=== PATIENT | male | born 1955 | race American Indian/Alaskan Native ===

== ENCOUNTER 2018-07-10 14:35 | Inpatient (IN) | payer OTHER ==
--- NOTE | 2018-07-10 15:44 | C.PDOC ---
History Of Present Illness 63 y/o male with PMHx of HTN presents to the ED complaining of a 1-2 week history of feeling the blood mariano to his head upon standing up. Associated with complaints of polydipsia and polyuria. Patient came in today because he also developed bilateral blurry vision. Otherwise he denies any chest pain, sob , fever, abdominal pain, vomiting, diarrhea, incontinence, or other complaints. Time Seen by Provider: 07/10/18 15:35 Chief Complaint (Nursing): Dizziness/Lightheaded History Per: Patient History/Exam Limitations: no limitations Onset/Duration Of Symptoms: Days Current Symptoms Are (Timing): Still Present Activity At Onset Of Symptoms: Had Just Stood up Fall Associated With With Symptoms: No Past Medical History Reviewed: Historical Data, Nursing Documentation, Vital Signs Vital Signs: Last Vital Signs Temp 98.4 F 07/10/18 15:08 Pulse 80 07/10/18 17:39 Resp 16 07/10/18 17:39 BP 152/87 H 07/10/18 17:39 Pulse Ox 98 07/10/18 18:18 - Medical History PMH: HTN Family History: States: No Known Family Hx - Social History Hx Tobacco Use: Yes Hx Alcohol Use: No Hx Substance Use: No - Immunization History Hx Tetanus Toxoid Vaccination: No Hx Influenza Vaccination: No Hx Pneumococcal Vaccination: No Review Of Systems Constitutional: Positive for: Other (Polydipsia). Negative for: Fever, Chills Eyes: Positive for: Vision Change (blurred vision) Cardiovascular: Negative for: Chest Pain Respiratory: Negative for: Shortness of Breath Gastrointestinal: Negative for: Vomiting, Abdominal Pain, Diarrhea Genitourinary: Positive for: Other (Polyuria). Negative for: Dysuria, Incontinence Neurological: Positive for: Other (Feels the "blood mariano to his head"). Negative for: Headache, Dizziness Physical Exam - Physical Exam Appears: Non-toxic, No Acute Distress Skin: Warm, No Rash Head: Atraumatic, Normacephalic Eye(s): bilateral: PERRL, EOMI Oral Mucosa: Moist Neck: Normal ROM, Supple Chest: Symmetrical, No Tenderness Cardiovascular: Rhythm Regular, No Murmur Respiratory: Normal Breath Sounds, No Rales, No Rhonchi, No Wheezing Gastrointestinal/Abdominal: Bowel Sounds (normoactive), Soft, No Tenderness, No Distention Back: No CVA Tenderness Extremity: Bilateral: Atraumatic, Normal Color And Temperature Neurological/Psych: Oriented x3, Other (No gross deficit) ED Course And Treatment - Laboratory Results Result Diagrams: 07/10/18 15:58 07/10/18 15:58 O2 Sat by Pulse Oximetry: 98 (RA) Pulse Ox Interpretation: Normal Medical Decision Making Medical Decision Making: Initial Impression: 63 y/o M with c/o blurred vision, polydipsia, polyuria Accucheck in triage > 500. Plan: Blood work UA blood cultures VBG Accucheck Progress/Updates: Labs reviewed, glucose 673 mg/dl. Case discussed w/ hospitalist on-call, Dr. Trejo, who accepts patient for admission for new-onset diabetes. request dose if iv insulin in ed, ordered by me. Disposition Discussed With : Christian Trejo Doctor Will See Patient In The: Hospital - Disposition Disposition: HOSPITALIZED Disposition Time: 17:06 Condition: SERIOUS - Clinical Impression Clinical Impression: Diabetes mellitus, new onset - PA / [employer] / Resident Statement MD/DO has reviewed & agrees with the documentation as recorded. - Scribe Statement The provider has reviewed the documentation as recorded by the Scribe (Jayla Murray) All medical record entries made by the Scribe were at my direction and personally dictated by me. I have reviewed the chart and agree that the record accurately reflects my personal performance of the history, physical exam, medical decision making, and the department course for this patient. I have also personally directed, reviewed, and agree with the discharge instructions and disposition.
[2018-07-10] MEDS ORDERED: Sodium Chloride 0.9% 1,000 ML IV ONE (15:46)
[2018-07-10 16:09] LABS: VENOUS BLOOD GAS BASE EXCESS -5.4 mmol/L (0.0-2.0); VENOUS BLOOD GAS PCO2 34 mmHg (40-60); VENOUS BLOOD GAS PO2 54 mm/Hg (30-55); VENOUS BLOOD PH 7.36 (7.32-7.43)
[2018-07-10 16:10] LABS: URINE BILIRUBIN NEGATIVE (NEGATIVE); URINE BLOOD NEGATIVE (NEGATIVE); URINE CLARITY Clear (Clear); URINE COLOR Colorless (YELLOW); URINE GLUCOSE (UA) 3+ mg/dL (Normal); URINE LEUKOCYTE ESTERASE NEG Leu/uL (Negative); URINE PROTEIN NEGATIVE (NEGATIVE); URINE UROBILINOGEN NORMAL mg/dL (0.2-1.0)
[2018-07-10 16:28] LABS: BASO % 0.4 % (0.0-2.0); EOS % 0.7 % (0.0-4.0); HEMOGLOBIN 14.7 g/dL (12.0-18.0); LYMPH # 1.4 K/uL (1.0-4.3); LYMPH % 28.3 % (20.0-40.0); MEAN CELL VOLUME 90.6 fL (80.0-94.0); MEAN CORPUSCULAR HEMOGLOBIN 30.3 pg (27.0-31.0); MEAN CORPUSCULAR HGB CONC 33.5 g/dL (33.0-37.0); MEAN PLATELET VOLUME 11.7 fL (7.2-11.7); MONO # 0.3 K/uL (0.0-0.8); MONO % 5.7 % (0.0-10.0); NEUT # 3.2 K/uL (1.8-7.0); NEUT % 64.9 % (50.0-75.0); NRBC % 0.1 % (0.0-2.0); RBC 4.86 Mil/uL (4.40-5.90)
[2018-07-10 16:30] LABS: ALB/GLOB RATIO 1.3 (1.0-2.1); ALBUMIN 4.4 g/dL (3.5-5.0); ALT/SGPT 33 U/L (21-72); AST/SGOT 22 U/L (17-59); BLOOD UREA NITROGEN 9 mg/dL (9-20); CALCIUM 9.6 mg/dl (8.6-10.4); GFR NON-AFRICAN AMERICAN > 60
[2018-07-10] MEDS ORDERED: Sodium Chloride 0.9% 1,000 ML ONE (16:57)
[2018-07-10] MEDS ORDERED: (Novolin R) Insulin Human Regular 100 units/ml vial IV STA (17:02)
[2018-07-10] MEDS ORDERED: (Novolin R) Insulin Human Regular 100 units/ml vial ONE (17:11)
[2018-07-10] MEDS ORDERED: Dextrose 50% SYRINGE Inj (50 ml) IV PRN (18:34)
[2018-07-10] MEDS ORDERED: Glucagon Recombinant 1 mg Inj IM PRN (18:34)
--- NOTE | 2018-07-10 18:35 | RAD ---
Date of service: 07/10/2018 HISTORY: admit COMPARISON: No prior. TECHNIQUE: Chest PA and lateral FINDINGS: LUNGS: No active pulmonary disease. PLEURA: No significant pleural effusion identified. No pneumothorax apparent. CARDIOVASCULAR: Normal. OSSEOUS STRUCTURES: No significant abnormalities. VISUALIZED UPPER ABDOMEN: Normal. OTHER FINDINGS: None. IMPRESSION: No active disease.
--- NOTE | 2018-07-10 18:48 | CP.PCM.HP ---
<Melanie Vogel - Last Filed: 07/10/18 20:05> History of Present Illness - History of Present Illness History of Present Illness: Christine Ruffin is a 63 yo male with a history of HTN who presents to the ED with blurry vision, polydipsia, polyuria, and weakness x2 weeks. The patient states this has happened to him in the past but never to this extent. The patient also reports a recent unintentional 15 lb weight loss. He stateshe drinks well over a gallon of water each day. Patient denies chest pain and SOB. He denies LEA. He denies loss of sensation, numbness, and tingling. He denies any lesions. He denies fevers and chills. PMH: HTN PSH: none Meds: lisinopril (unknown dose), MV All: NKA FH: mother and father sister ()- DM adult children- healthy SH: Lives in with Works in maintenance Tobacco- 1 ppd x 40 yrs Alcohol- rare Denies illicit drugs, including IVDA PMD: [facility] clinic Code status: full code Medical proxy: Laina [phone] Present on Admission - Present on Admission Any Indicators Present on Admission: No History of DVT/PE: No History of Uncontrolled Diabetes: No Urinary Catheter: No Decubitus Ulcer Present: No History Surgical Site Infection Following: None Review of Systems - Constitutional Constitutional: Weight Loss (15 lb), Weakness. absent: Chills, Fever, Headache , Increased Appetite - EENT Eyes: Blurred Vision. absent: Loss of Peripheral Vision, Pain, Loss of Vision Nose/Mouth/Throat: Dry Mouth. absent: Nasal Congestion, Sore Throat - Cardiovascular Cardiovascular: absent: Chest Pain, Dyspnea, Edema, Leg Edema, Lightheadedness, Palpitations - Respiratory Respiratory: absent: Cough, Dyspnea - Gastrointestinal Gastrointestinal: absent: Abdominal Pain, Constipation, Diarrhea, Nausea, Vomiting - Genitourinary Genitourinary: Urinary Frequency. absent: Dysuria, Hematuria, Urinary Hesitance - Musculoskeletal Musculoskeletal: absent: Muscle Weakness, Numbness, Tingling - Integumentary Integumentary: absent: Lesions, Non-Healing Lesions, Rash - Neurological Neurological: Weakness (generalized), Other Visual Disturbances (blurry). absent: Dizziness, Numbness, Paresthesias, Sensory Deficit, Tingling - Psychiatric Psychiatric: absent: Anxiety, Depression - Endocrine Endocrine: Polydipsia, Polyuria - Hematologic/Lymphatic Hematologic: absent: Easy Bleeding, Easy Bruising, Lymphadenopathy Past Patient History - Infectious Disease Hx of Infectious Diseases: None - Tetanus Immunizations Tetanus Immunization: Unknown - Past Medical History & Family History Pertinent Family History: sister- DM - Past Social History Smoking Status: Heavy Smoker > 10 Cigarettes Daily (1 ppd x40 yrs) Chewing Tobacco Use: No Cigar Use: No Alcohol: Occasional Drugs: Denies Home Situation {Lives}: With Family () Domestic Violence: Negative - CARDIAC Hx Hypertension: Yes - PSYCHIATRIC Hx Substance Use: No Meds Allergies/Adverse Reactions: Allergies Allergy/AdvReac Type Severity Reaction Status Date / Time No Known Allergies Allergy Verified 07/10/18 15:10 Physical Exam - Head Exam Head Exam: ATRAUMATIC, NORMAL INSPECTION, NORMOCEPHALIC - Eye Exam Eye Exam: EOMI, Normal appearance, PERRL - ENT Exam ENT Exam: Mucous Membranes Moist, Normal Exam - Neck Exam Neck exam: Positive for: Normal Inspection - Respiratory Exam Respiratory Exam: Clear to Auscultation Bilateral, NORMAL BREATHING PATTERN - Cardiovascular Exam Cardiovascular Exam: REGULAR RHYTHM, +S1, +S2 - GI/Abdominal Exam GI & Abdominal Exam: Normal Bowel Sounds, Soft. absent: Tenderness Additional comments: obese - Rectal Exam Rectal Exam: Deferred - Extremities Exam Extremities exam: Positive for: normal capillary refill, normal inspection, pedal pulses present. Negative for: pedal edema - Back Exam Back exam: NORMAL INSPECTION. absent: tenderness - Neurological Exam Neurological exam: Alert, CN II-XII Intact, Normal Gait, Oriented x3 - Psychiatric Exam Psychiatric exam: Normal Affect, Normal Mood - Skin Skin Exam: Dry, Intact, Normal Color, Warm Results - Vital Signs Recent Vital Signs: Last Vital Signs Temp 98.4 F 07/10/18 15:08 Pulse 80 07/10/18 17:39 Resp 16 07/10/18 17:39 BP 152/87 H 07/10/18 17:39 Pulse Ox 98 07/10/18 18:35 - Labs Result Diagrams: 07/10/18 15:58 07/10/18 15:58 Labs: Laboratory Results - last 24 hr 07/10/18 07/10/18 07/10/18 15:07 15:58 15:58 WBC 5.0 RBC 4.86 Hgb 14.7 Hct 44.0 MCV 90.6 MCH 30.3 MCHC 33.5 RDW 14.0 Plt Count 143 MPV 11.7 Neut % (Auto) 64.9 Lymph % (Auto) 28.3 Swain % (Auto) 5.7 Eos % (Auto) 0.7 Baso % (Auto) 0.4 Neut # (Auto) 3.2 Lymph # (Auto) 1.4 Swain # (Auto) 0.3 Eos # (Auto) 0.0 Baso # (Auto) 0.0 Differential Comment pO2 VBG pH VBG pCO2 VBG HCO3 VBG Total CO2 VBG O2 Sat (Calc) VBG Base Excess VBG Potassium Glucose Lactate Crit Value Called To Crit Value Called By Crit Value Read Back Blood Gas Notified Time Sodium Potassium Chloride Carbon Dioxide Anion Gap BUN Creatinine Est GFR ( Amer) Est GFR (Non-Af Amer) POC Glucose (mg/dL) > 500 H* Random Glucose Calcium Total Bilirubin AST ALT Alkaline Phosphatase Total Protein Albumin Globulin Albumin/Globulin Ratio Venous Blood Potassium Urine Color Colorless Urine Clarity Clear Urine pH 5.0 Ur Specific [place] 1.022 Urine Protein Negative Urine Glucose (UA) 3+ H Urine Ketones 1+ H Urine Blood Negative Urine Nitrate Negative Urine Bilirubin Negative Urine Urobilinogen Normal Ur Leukocyte Esterase Neg Urine WBC (Auto) 1 07/10/18 07/10/18 07/10/18 15:58 16:03 16:52 WBC RBC Hgb Hct MCV MCH MCHC RDW Plt Count MPV Neut % (Auto) Lymph % (Auto) Swain % (Auto) Eos % (Auto) Baso % (Auto) Neut # (Auto) Lymph # (Auto) Swain # (Auto) Eos # (Auto) Baso # (Auto) Differential Comment pO2 54 VBG pH 7.36 VBG pCO2 34 L VBG HCO3 20.4 VBG Total CO2 20.2 L VBG O2 Sat (Calc) 93.1 H VBG Base Excess -5.4 L VBG Potassium 3.1 L Glucose 673 H* Lactate 1.1 Crit Value Called To stefania Hartmann rn Crit Value Called By Sam Crit Value Read Back Y Blood Gas Notified Time 1608 Sodium 132 135.0 Potassium 4.3 Chloride 93 L 101.0 Carbon Dioxide 23 Anion Gap 20 BUN 9 Creatinine 1.0 Est GFR ( Amer) > 60 Est GFR (Non-Af Amer) > 60 POC Glucose (mg/dL) > 500 H* Random Glucose 778 H* Calcium 9.6 Total Bilirubin 1.1 AST 22 ALT 33 Alkaline Phosphatase 104 Total Protein 7.7 Albumin 4.4 Globulin 3.3 Albumin/Globulin Ratio 1.3 Venous Blood Potassium 3.1 L Urine Color Urine Clarity Urine pH Ur Specific [place] Urine Protein Urine Glucose (UA) Urine Ketones Urine Blood Urine Nitrate Urine Bilirubin Urine Urobilinogen Ur Leukocyte Esterase Urine WBC (Auto) 07/10/18 07/10/18 16:54 18:15 WBC RBC Hgb Hct MCV MCH MCHC RDW Plt Count MPV Neut % (Auto) Lymph % (Auto) Swain % (Auto) Eos % (Auto) Baso % (Auto) Neut # (Auto) Lymph # (Auto) Swain # (Auto) Eos # (Auto) Baso # (Auto) Differential Comment pO2 VBG pH VBG pCO2 VBG HCO3 VBG Total CO2 VBG O2 Sat (Calc) VBG Base Excess VBG Potassium Glucose Lactate Crit Value Called To Crit Value Called By Crit Value Read Back Blood Gas Notified Time Sodium Potassium Chloride Carbon Dioxide Anion Gap BUN Creatinine Est GFR ( Amer) Est GFR (Non-Af Amer) POC Glucose (mg/dL) > 500 H* 392 H Random Glucose Calcium Total Bilirubin AST ALT Alkaline Phosphatase Total Protein Albumin Globulin Albumin/Globulin Ratio Venous Blood Potassium Urine Color Urine Clarity Urine pH Ur Specific [place] Urine Protein Urine Glucose (UA) Urine Ketones Urine Blood Urine Nitrate Urine Bilirubin Urine Urobilinogen Ur Leukocyte Esterase Urine WBC (Auto) - EKG Data EKG Interpreted by: ER Physician EKG shows normal: Sinus rhythm Rate: Normal Assessment & Plan - Assessment and Plan (Free Text) Assessment: Patient is a 63 yo AA male with a h/o HTN who presented with blurry vision, weakness, polydipsia, and polyuria x2 weeks. In the ED, his blood glucose was 778. he also had 1+ ketones in his urine. This appears to be a new diagnosis of T2DM. Plan: T2DM, newly diagnosed - On admission: BG 778; 1 hour after regular insulin 10 units and 2 L NS: BG 392 - F/u BMP - VBG: glucose 673, pH 7.36, pO2 54, pCO2 34 - UA: ketones +1, glucose +3 - Anion gap: 16 - Accuchecks q3hrs over night then ACHS tomorrow - ISS- high dose - Hypoglycemia protocol - Lantus 10 units QHS - Crestor 5 mg PO QHS - F/u lipid panel - F/u TSH - F/u A1c - F/u microalbumin HTN- 180/70 on admission - Lisinopril 10 mg PO daily - Vitals q4hrs Tobacco use disorder - Smoking cessation counseling IVF: NS @ 150 GI ppx: not indicated VTE ppx: Lovenox 40 SC, SCDs Diet: heart healthy, low carb Code status: full code <Christian Trejo H - Last Filed: 07/11/18 07:31> Results - Vital Signs Recent Vital Signs: Last Vital Signs Temp 98.3 F 07/11/18 00:00 Pulse 72 07/11/18 00:00 Resp 20 07/11/18 00:00 BP 135/80 07/11/18 00:00 Pulse Ox 99 07/11/18 00:00 - Labs Result Diagrams: 07/11/18 06:55 07/10/18 20:58 Labs: Laboratory Results - last 24 hr 07/10/18 07/10/18 07/10/18 15:07 15:58 15:58 WBC 5.0 RBC 4.86 Hgb 14.7 Hct 44.0 MCV 90.6 MCH 30.3 MCHC 33.5 RDW 14.0 Plt Count 143 MPV 11.7 Neut % (Auto) 64.9 Lymph % (Auto) 28.3 Swain % (Auto) 5.7 Eos % (Auto) 0.7 Baso % (Auto) 0.4 Neut # (Auto) 3.2 Lymph # (Auto) 1.4 Swain # (Auto) 0.3 Eos # (Auto) 0.0 Baso # (Auto) 0.0 Differential Comment pO2 VBG pH VBG pCO2 VBG HCO3 VBG Total CO2 VBG O2 Sat (Calc) VBG Base Excess VBG Potassium Glucose Lactate Crit Value Called To Crit Value Called By Crit Value Read Back Blood Gas Notified Time Sodium Potassium Chloride Carbon Dioxide Anion Gap BUN Creatinine Est GFR ( Amer) Est GFR (Non-Af Amer) POC Glucose (mg/dL) > 500 H* Random Glucose Calcium Total Bilirubin AST ALT Alkaline Phosphatase Total Protein Albumin Globulin Albumin/Globulin Ratio Venous Blood Potassium Urine Color Colorless Urine Clarity Clear Urine pH 5.0 Ur Specific [place] 1.022 Urine Protein Negative Urine Glucose (UA) 3+ H Urine Ketones 1+ H Urine Blood Negative Urine Nitrate Negative Urine Bilirubin Negative Urine Urobilinogen Normal Ur Leukocyte Esterase Neg Urine WBC (Auto) 1 07/10/18 07/10/18 07/10/18 15:58 16:03 16:52 WBC RBC Hgb Hct MCV MCH MCHC RDW Plt Count MPV Neut % (Auto) Lymph % (Auto) Swain % (Auto) Eos % (Auto) Baso % (Auto) Neut # (Auto) Lymph # (Auto) Swain # (Auto) Eos # (Auto) Baso # (Auto) Differential Comment pO2 54 VBG pH 7.36 VBG pCO2 34 L VBG HCO3 20.4 VBG Total CO2 20.2 L VBG O2 Sat (Calc) 93.1 H VBG Base Excess -5.4 L VBG Potassium 3.1 L Glucose 673 H* Lactate 1.1 Crit Value Called To stefania Hartmann rn Crit Value Called By Sam Crit Value Read Back Y Blood Gas Notified Time 1608 Sodium 132 135.0 Potassium 4.3 Chloride 93 L 101.0 Carbon Dioxide 23 Anion Gap 20 BUN 9 Creatinine 1.0 Est GFR ( Amer) > 60 Est GFR (Non-Af Amer) > 60 POC Glucose (mg/dL) > 500 H* Random Glucose 778 H* Calcium 9.6 Total Bilirubin 1.1 AST 22 ALT 33 Alkaline Phosphatase 104 Total Protein 7.7 Albumin 4.4 Globulin 3.3 Albumin/Globulin Ratio 1.3 Venous Blood Potassium 3.1 L Urine Color Urine Clarity Urine pH Ur Specific [place] Urine Protein Urine Glucose (UA) Urine Ketones Urine Blood Urine Nitrate Urine Bilirubin Urine Urobilinogen Ur Leukocyte Esterase Urine WBC (Auto) 07/10/18 07/10/18 07/10/18 16:54 18:15 20:36 WBC RBC Hgb Hct MCV MCH MCHC RDW Plt Count MPV Neut % (Auto) Lymph % (Auto) Swain % (Auto) Eos % (Auto) Baso % (Auto) Neut # (Auto) Lymph # (Auto) Swain # (Auto) Eos # (Auto) Baso # (Auto) Differential Comment pO2 VBG pH VBG pCO2 VBG HCO3 VBG Total CO2 VBG O2 Sat (Calc) VBG Base Excess VBG Potassium Glucose Lactate Crit Value Called To Crit Value Called By Crit Value Read Back Blood Gas Notified Time Sodium Potassium Chloride Carbon Dioxide Anion Gap BUN Creatinine Est GFR ( Amer) Est GFR (Non-Af Amer) POC Glucose (mg/dL) > 500 H* 392 H 368 H Random Glucose Calcium Total Bilirubin AST ALT Alkaline Phosphatase Total Protein Albumin Globulin Albumin/Globulin Ratio Venous Blood Potassium Urine Color Urine Clarity Urine pH Ur Specific [place] Urine Protein Urine Glucose (UA) Urine Ketones Urine Blood Urine Nitrate Urine Bilirubin Urine Urobilinogen Ur Leukocyte Esterase Urine WBC (Auto) 07/10/18 07/10/18 07/11/18 20:58 21:34 01:02 WBC RBC Hgb Hct MCV MCH MCHC RDW Plt Count MPV Neut % (Auto) Lymph % (Auto) Swain % (Auto) Eos % (Auto) Baso % (Auto) Neut # (Auto) Lymph # (Auto) Swain # (Auto) Eos # (Auto) Baso # (Auto) Differential Comment pO2 VBG pH VBG pCO2 VBG HCO3 VBG Total CO2 VBG O2 Sat (Calc) VBG Base Excess VBG Potassium Glucose Lactate Crit Value Called To Crit Value Called By Crit Value Read Back Blood Gas Notified Time Sodium 140 Potassium 3.8 Chloride 109 H Carbon Dioxide 21 L Anion Gap 14 BUN 8 L Creatinine 1.0 Est GFR ( Amer) > 60 Est GFR (Non-Af Amer) > 60 POC Glucose (mg/dL) 340 H 275 H Random Glucose 318 H Calcium 7.8 L Total Bilirubin AST ALT Alkaline Phosphatase Total Protein Albumin Globulin Albumin/Globulin Ratio Venous Blood Potassium Urine Color Urine Clarity Urine pH Ur Specific [place] Urine Protein Urine Glucose (UA) Urine Ketones Urine Blood Urine Nitrate Urine Bilirubin Urine Urobilinogen Ur Leukocyte Esterase Urine WBC (Auto) 07/11/18 06:55 WBC 4.8 RBC 4.17 L Hgb 12.9 Hct 37.1 MCV 89.0 MCH 30.8 MCHC 34.6 RDW 14.2 Plt Count 115 L D MPV 12.0 H Neut % (Auto) 56.4 Lymph % (Auto) 35.8 Swain % (Auto) 5.6 Eos % (Auto) 1.8 Baso % (Auto) 0.4 Neut # (Auto) 2.7 Lymph # (Auto) 1.7 Swain # (Auto) 0.3 Eos # (Auto) 0.1 Baso # (Auto) 0.0 Differential Comment pO2 VBG pH VBG pCO2 VBG HCO3 VBG Total CO2 VBG O2 Sat (Calc) VBG Base Excess VBG Potassium Glucose Lactate Crit Value Called To Crit Value Called By Crit Value Read Back Blood Gas Notified Time Sodium Potassium Chloride Carbon Dioxide Anion Gap BUN Creatinine Est GFR ( Amer) Est GFR (Non-Af Amer) POC Glucose (mg/dL) Random Glucose Calcium Total Bilirubin AST ALT Alkaline Phosphatase Total Protein Albumin Globulin Albumin/Globulin Ratio Venous Blood Potassium Urine Color Urine Clarity Urine pH Ur Specific [place] Urine Protein Urine Glucose (UA) Urine Ketones Urine Blood Urine Nitrate Urine Bilirubin Urine Urobilinogen Ur Leukocyte Esterase Urine WBC (Auto) Attending/Attestation - Attestation I have personally seen and examined this patient.: Yes I have fully participated in the care of the patient.: Yes I have reviewed all pertinent clinical information: Yes Notes (Text): 07/11/18 07:25 Medical attending: Patient was seen and examined by me. Agree with the above note by the resident The patient was not in acute distress however as reported above in the resident note that the patient was very much having polydypsia as well as polyuria. He reported a lot of weight loss as well as some moderate fatigue as well. He did not know that he had diabetes. This was something new to him. He did not have a previous physician from before for a long time. I asked the ER to give 10 of IV insulin and also continue with the IVF. He will have additional IV fluid overnight as well as lantus 10 U and also SSI Q3hrs Continue also lisinopril and also a statin as well. We will see how his accuchecks come out and if he does ok we can consider PO medications. Christian Trejo
[2018-07-10 21:37] LABS: BLOOD UREA NITROGEN 8 mg/dL (9-20); CALCIUM 7.8 mg/dl (8.6-10.4); GFR NON-AFRICAN AMERICAN > 60
[2018-07-10] MEDS: Sodium Chloride 0.9% 1,000 ML IV SCH (21:41)
[2018-07-10] MEDS: (Lantus) Insulin Glargine, Recombinant SC SCH (21:41)
[2018-07-10] MEDS: (Novolog) Insulin Aspart, Recombinant 100 u/ml 10 ml vial SC SCH (21:44)
[2018-07-11] MEDS: (Novolog) Insulin Aspart, Recombinant 100 u/ml 10 ml vial SC SCH ×6 (01:12→21:28)
[2018-07-11] MEDS: Sodium Chloride 0.9% 1,000 ML IV SCH ×5 (01:34→21:54)
[2018-07-11 07:08] LABS: EOS # 0.1 K/uL (0.0-0.7); LYMPH # 1.7 K/uL (1.0-4.3); LYMPH % 35.8 % (20.0-40.0); MEAN CORPUSCULAR HEMOGLOBIN 30.8 pg (27.0-31.0); MONO # 0.3 K/uL (0.0-0.8); NEUT # 2.7 K/uL (1.8-7.0); NRBC % 0.1 % (0.0-2.0)
[2018-07-11 07:21] LABS: BASO % 0.4 % (0.0-2.0); EOS % 1.8 % (0.0-4.0); HEMOGLOBIN 12.9 g/dL (12.0-18.0); MEAN CORPUSCULAR HGB CONC 34.6 g/dL (33.0-37.0); MONO % 5.6 % (0.0-10.0); NEUT % 56.4 % (50.0-75.0); RBC 4.17 Mil/uL (4.40-5.90); RED CELL DISTRIBUTION WIDTH 14.2 % (11.5-14.5); WHITE BLOOD COUNT 4.8 K/uL (4.8-10.8)
[2018-07-11 07:32] LABS: LDL CHOLESTEROL 57 mg/dL (0-129)
[2018-07-11 07:51] LABS: ALB/GLOB RATIO 1.1 (1.0-2.1); ALBUMIN 3.3 g/dL (3.5-5.0); ALT/SGPT 29 U/L (21-72); AST/SGOT 26 U/L (17-59); BLOOD UREA NITROGEN 8 mg/dL (9-20); CALCIUM 8.4 mg/dl (8.6-10.4); GFR NON-AFRICAN AMERICAN > 60; HDL CHOLESTEROL 41 mg/dL (30-70)
[2018-07-11] MEDS: Enoxaparin 40 mg Syringe SC SCH (09:51)
--- NOTE | 2018-07-11 10:26 | CP.PCM.PN ---
<Melanie Vogel - Last Filed: 07/11/18 11:29> Subjective - Date & Time of Evaluation Date of Evaluation: 07/11/18 Time of Evaluation: 07:35 - Subjective Subjective: PGY-1 Melanie Vogel D.O. Medicine progress note for Dr. Trejo's service: Patient is seen and examined this morning. He reports that he is feeling much better than yesterday. His blurry vision has improved. He is less thirsty. He is not urinated as frequently and states that his urine is not as light in color. He is eating and sleeping well. He denies LEA, chest pain, SOB. he denies abdominal pain, N/V/D/C. Objective - Vital Signs/Intake and Output Vital Signs (last 24 hours): Temp Pulse Resp BP Pulse Ox 98.2 F 76 20 156/74 H 98 07/11/18 07:16 07/11/18 07:16 07/11/18 07:16 07/11/18 07:16 07/11/18 07:16 Intake and Output: 07/11/18 07/11/18 06:59 18:59 Intake Total 1440 Output Total 750 Balance 690 - Medications Medications: Current Medications Acetaminophen (Tylenol 325mg Tab) 650 mg PO Q6 PRN PRN Reason: Pain, Mild (1-3) Dextrose (Dextrose 50% Inj) 0 ml IV STAT PRN; Protocol PRN Reason: Hypoglycemia Protocol Dextrose (Glutose 15) 0 gm PO ONCE PRN; Protocol PRN Reason: Hypoglycemia Protocol Enoxaparin Sodium (Lovenox) 40 mg SC DAILY [facility] Last Admin: 07/11/18 09:51 Dose: 40 mg Glucagon (Glucagen Diagnostic Kit) 1 mg IM STAT PRN; Protocol PRN Reason: Hypoglycemia Protocol Dextrose (Dextrose 5% In Water 1000 Ml) 1,000 mls @ 0 mls/hr IV .Q0M PRN; Protocol; Per Protocol PRN Reason: Hypoglycemia Protocol Sodium Chloride (Sodium Chloride 0.9%) 1,000 mls @ 150 mls/hr IV .Q6H40M [facility] Last Admin: 07/11/18 09:51 Dose: Not Given Insulin Aspart (Novolog) 0 unit SC ACHS [facility] PRN Reason: Protocol Insulin Glargine (Lantus) 10 unit SC HS [facility] Last Admin: 07/10/18 21:41 Dose: 10 u Lisinopril (Zestril) 10 mg PO DAILY [facility] Last Admin: 07/11/18 09:50 Dose: 10 mg Metformin HCl (Glucophage) 1,000 mg PO BIDCC [facility] Last Admin: 07/11/18 08:03 Dose: 1,000 mg Pneumococcal Polyvalent Vaccine (Pneumovax 23 Vaccine) 0.5 ml IM .ONCE ONE Stop: 07/13/18 10:01 Rosuvastatin Calcium (Crestor) 5 mg PO HS [facility] Last Admin: 07/10/18 21:41 Dose: 5 mg - Labs Labs: 07/11/18 06:55 07/11/18 06:55 - Constitutional Appears: Well, Non-toxic, No Acute Distress - Head Exam Head Exam: ATRAUMATIC, NORMAL INSPECTION, NORMOCEPHALIC - Eye Exam Eye Exam: EOMI, Normal appearance - ENT Exam ENT Exam: Mucous Membranes Moist, Normal Exam - Neck Exam Neck Exam: Normal Inspection - Respiratory Exam Respiratory Exam: Clear to Ausculation Bilateral, NORMAL BREATHING PATTERN - Cardiovascular Exam Cardiovascular Exam: REGULAR RHYTHM, +S1, +S2 - GI/Abdominal Exam GI & Abdominal Exam: Soft, Normal Bowel Sounds. absent: Tenderness Additional comments: obese - Rectal Exam Rectal Exam: Deferred - Extremities Exam Extremities Exam: Full ROM, Normal Capillary Refill, Normal Inspection. absent : Pedal Edema, Tenderness - Back Exam Back Exam: NORMAL INSPECTION - Neurological Exam Neurological Exam: Alert, Awake, CN II-XII Intact, Normal Gait, Oriented x3 - Psychiatric Exam Psychiatric exam: Normal Affect, Normal Mood - Skin Skin Exam: Dry, Intact, Normal Color, Warm Assessment and Plan - Assessment and Plan (Free Text) Assessment: Patient is a 63 yo male who presented with blurred vision, weakness, polyuria, and polydipsia. His BG was found to be elevated at 778 and his A1c is 14.3. He is diagnosed with T2DM. Plan: T2DM, newly diagnosed- BG improving with insulin (currently in mid 200s), pt's symptoms improving as well - On admission: BG 778; 1 hour after regular insulin 10 units and 2 L NS: BG 392 - A1c 14.3 - VBG: glucose 673, pH 7.36, pO2 54, pCO2 34 - UA: ketones +1, glucose +3 - Anion gap: 20->14 - Lipid panel wnl - TSH wnl - Accuchecks ACHS - ISS- high dose ACHS - Hypoglycemia protocol - Lantus 10 units QHS - Metformin 1000 mg PO BID - Crestor 5 mg PO QHS - F/u microalbumin HTN- 180/70 on admission - Lisinopril 10 mg PO daily - Vitals q4hrs Tobacco use disorder - Smoking cessation counseling IVF: NS @ 150 GI ppx: not indicated VTE ppx: Lovenox 40 SC, SCDs Diet: heart healthy, low carb Code status: full code Dispo: Will continue to monitor BG throughout today and determine insulin requirement. Plan to discharge home tomorrow on metformin +/- glipizide +/- insulin. Will refer to clinic. <Christian Trejo - Last Filed: 07/11/18 14:14> Objective - Vital Signs/Intake and Output Vital Signs (last 24 hours): Temp Pulse Resp BP Pulse Ox 98.2 F 76 20 156/74 H 98 07/11/18 07:16 07/11/18 07:16 07/11/18 07:16 07/11/18 07:16 07/11/18 07:16 Intake and Output: 07/11/18 07/11/18 06:59 18:59 Intake Total 1440 Output Total 750 Balance 690 - Medications Medications: Current Medications Acetaminophen (Tylenol 325mg Tab) 650 mg PO Q6 PRN PRN Reason: Pain, Mild (1-3) Aspirin (Aspirin Chewable) 81 mg PO DAILY [facility] Last Admin: 07/11/18 11:58 Dose: 81 mg Dextrose (Dextrose 50% Inj) 0 ml IV STAT PRN; Protocol PRN Reason: Hypoglycemia Protocol Dextrose (Glutose 15) 0 gm PO ONCE PRN; Protocol PRN Reason: Hypoglycemia Protocol Enoxaparin Sodium (Lovenox) 40 mg SC DAILY [facility] Last Admin: 07/11/18 09:51 Dose: 40 mg Glucagon (Glucagen Diagnostic Kit) 1 mg IM STAT PRN; Protocol PRN Reason: Hypoglycemia Protocol Dextrose (Dextrose 5% In Water 1000 Ml) 1,000 mls @ 0 mls/hr IV .Q0M PRN; Protocol; Per Protocol PRN Reason: Hypoglycemia Protocol Sodium Chloride (Sodium Chloride 0.9%) 1,000 mls @ 150 mls/hr IV .Q6H40M [facility] Last Admin: 07/11/18 12:03 Dose: 150 mls/hr Insulin Aspart (Novolog) 0 unit SC ACHS [facility] PRN Reason: Protocol Last Admin: 07/11/18 11:59 Dose: 4 units Insulin Glargine (Lantus) 10 unit SC [facility] Last Admin: 07/10/18 21:41 Dose: 10 u Lisinopril (Zestril) 10 mg PO DAILY [facility] Last Admin: 07/11/18 09:50 Dose: 10 mg Metformin HCl (Glucophage) 1,000 mg PO BIDCC [facility] Last Admin: 07/11/18 08:03 Dose: 1,000 mg Pneumococcal Polyvalent Vaccine (Pneumovax 23 Vaccine) 0.5 ml IM .ONCE ONE Stop: 07/13/18 10:01 Rosuvastatin Calcium (Crestor) 5 mg PO [facility] Last Admin: 07/10/18 21:41 Dose: 5 mg - Labs Labs: 07/11/18 06:55 07/11/18 06:55 Attending/Attestation - Attestation I have personally seen and examined this patient.: Yes I have fully participated in the care of the patient.: Yes I have reviewed all pertinent clinical information, including history, physical exam and plan: Yes Notes (Text): 07/11/18 14:14 Medical attending: Patient was seen and examined by me, reviewed the above note by the medical radiation therapist, and agree with the above note. The patient was not in any acute distress when we saw him. She reported uneventful night. He explains to us that he is no longer having the polyuria, polydipsia, and has much less fatigue than before. His lab work is much stable her. His Accu-Cheks her lower and they range anywhere between the 240 sugar range. Currently he is on a sliding scale, Lantus 10 units, and this morning I asked him on metformin 1000 twice a day were continuing with the intravenous fluids at 150 at this time. His blood pressure remained stable Very likely will discharge him tomorrow I just want to see what his sugars look like because he may also require an additional oral medication for his diabetes as well Thank you very much, Christian Trejo
[2018-07-11] MEDS: (Lantus) Insulin Glargine, Recombinant SC SCH (21:27)
--- NOTE | 2018-07-11 23:44 | CARD ---
APPROVED REPORT Date of service: 07/10/2018 EKG Measurement Heart [id number] <Conclusion> Normal sinus rhythm Left axis deviation Nonspecific intraventricular conduction delay Abnormal ECG
[2018-07-12] MEDS: Sodium Chloride 0.9% 1,000 ML IV SCH (04:48)
--- NOTE | 2018-07-12 06:29 | CP.PCM.DIS ---
<Melanie Vogel - Last Filed: 07/12/18 18:36> Provider - Provider Date of Admission: 07/10/18 17:04 Attending physician: Christian Trejo DO Primary care physician: [facility] Consults: none Time Spent in preparation of Discharge (in minutes): 45 Diagnosis - Discharge Diagnosis (1) Diabetes mellitus, new onset Status: Chronic Priority: High (2) HTN (hypertension) Status: Chronic Priority: Medium (3) Tobacco use disorder Status: Chronic Priority: Medium Hospital Course - Lab Results Lab Results: Micro Results 07/10/18 06:00 Blood Blood Culture - Preliminary NO GROWTH AFTER 24 HOURS 07/10/18 06:00 Blood Blood Culture - Preliminary NO GROWTH AFTER 24 HOURS Most Recent Lab Values WBC 4.8 K/uL (4.8-10.8) 07/11/18 06:55 RBC 4.17 Mil/uL (4.40-5.90) L 07/11/18 06:55 Hgb 12.9 g/dL (12.0-18.0) 07/11/18 06:55 Hct 37.1 % (35.0-51.0) 07/11/18 06:55 MCV 89.0 fL (80.0-94.0) 07/11/18 06:55 MCH 30.8 pg (27.0-31.0) 07/11/18 06:55 MCHC 34.6 g/dL (33.0-37.0) 07/11/18 06:55 RDW 14.2 % (11.5-14.5) 07/11/18 06:55 Plt Count 115 K/uL (130-400) L D 07/11/18 06:55 MPV 12.0 fL (7.2-11.7) H 07/11/18 06:55 Neut % (Auto) 56.4 % (50.0-75.0) 07/11/18 06:55 Lymph % (Auto) 35.8 % (20.0-40.0) 07/11/18 06:55 [place] % (Auto) 5.6 % (0.0-10.0) 07/11/18 06:55 Eos % (Auto) 1.8 % (0.0-4.0) 07/11/18 06:55 Baso % (Auto) 0.4 % (0.0-2.0) 07/11/18 06:55 Neut # (Auto) 2.7 K/uL (1.8-7.0) 07/11/18 06:55 Lymph # (Auto) 1.7 K/uL (1.0-4.3) 07/11/18 06:55 [place] # (Auto) 0.3 K/uL (0.0-0.8) 07/11/18 06:55 Eos # (Auto) 0.1 K/uL (0.0-0.7) 07/11/18 06:55 Baso # (Auto) 0.0 K/uL (0.0-0.2) 07/11/18 06:55 Differential Comment 07/10/18 15:58 pO2 54 mm/Hg (30-55) 07/10/18 16:03 VBG pH 7.36 (7.32-7.43) 07/10/18 16:03 VBG pCO2 34 mmHg (40-60) L 07/10/18 16:03 VBG HCO3 20.4 mmol/L 07/10/18 16:03 VBG Total CO2 20.2 mmol/L (22-28) L 07/10/18 16:03 VBG O2 Sat (Calc) 93.1 % (40-65) H 07/10/18 16:03 VBG Base Excess -5.4 mmol/L (0.0-2.0) L 07/10/18 16:03 VBG Potassium 3.1 mmol/L (3.6-5.2) L 07/10/18 16:03 Sodium 135.0 mmol/l (132-148) 07/10/18 16:03 Chloride 101.0 mmol/L (98-107) 07/10/18 16:03 Glucose 673 mg/dl (75-110) H* 07/10/18 16:03 Lactate 1.1 mmol/L (0.7-2.1) 07/10/18 16:03 Crit Value Called To stefania Hartmann rn 07/10/18 16:03 Crit Value Called By Sam 07/10/18 16:03 Crit Value Read Back Y 07/10/18 16:03 Blood Gas Notified Time 1608 07/10/18 16:03 Sodium 140 mmol/L (132-148) 07/11/18 06:55 Potassium 3.7 mmol/L (3.6-5.2) 07/11/18 06:55 Chloride 107 mmol/L (98-107) 07/11/18 06:55 Carbon Dioxide 23 mmol/L (22-30) 07/11/18 06:55 Anion Gap 14 (10-20) 07/11/18 06:55 BUN 8 mg/dL (9-20) L 07/11/18 06:55 Creatinine 0.8 mg/dL (0.8-1.5) 07/11/18 06:55 Est GFR ( Amer) > 60 07/11/18 06:55 Est GFR (Non-Af Amer) > 60 07/11/18 06:55 POC Glucose (mg/dL) 249 mg/dL (65-110) H 07/12/18 02:14 Random Glucose 237 mg/dL (75-110) H 07/11/18 06:55 Hemoglobin A1c 14.3 % (4.2-6.5) H 07/11/18 06:55 Calcium 8.4 mg/dl (8.6-10.4) L 07/11/18 06:55 Phosphorus 2.5 mg/dL (2.5-4.5) 07/11/18 06:55 Magnesium 1.8 mg/dL (1.6-2.3) 07/11/18 06:55 Total Bilirubin 0.9 mg/dL (0.2-1.3) 07/11/18 06:55 AST 26 U/L (17-59) 07/11/18 06:55 ALT 29 U/L (21-72) 07/11/18 06:55 Alkaline Phosphatase 70 U/L (38-126) 07/11/18 06:55 Total Protein 6.2 g/dL (6.3-8.3) L 07/11/18 06:55 Albumin 3.3 g/dL (3.5-5.0) L D 07/11/18 06:55 Globulin 3.0 gm/dL (2.2-3.9) 07/11/18 06:55 Albumin/Globulin Ratio 1.1 (1.0-2.1) 07/11/18 06:55 Triglycerides 122 mg/dL (0-149) 07/11/18 06:55 Cholesterol 143 mg/dL (0-199) 07/11/18 06:55 LDL Cholesterol Direct 57 mg/dL (0-129) 07/11/18 06:55 HDL Cholesterol 41 mg/dL (30-70) 07/11/18 06:55 TSH 3rd Generation 0.86 mIU/L (0.46-4.68) 07/11/18 06:55 Venous Blood Potassium 3.1 mmol/L (3.6-5.2) L 07/10/18 16:03 Urine Color Colorless (YELLOW) 07/10/18 15:58 Urine Clarity Clear (Clear) 07/10/18 15:58 Urine pH 5.0 (5.0-8.0) 07/10/18 15:58 Ur Specific [place] 1.022 (1.003-1.030) 07/10/18 15:58 Urine Protein Negative mg/dL (NEGATIVE) 07/10/18 15:58 Urine Glucose (UA) 3+ mg/dL (Normal) H 07/10/18 15:58 Urine Ketones 1+ mg/dL (NEGATIVE) H 07/10/18 15:58 Urine Blood Negative (NEGATIVE) 07/10/18 15:58 Urine Nitrate Negative (NEGATIVE) 07/10/18 15:58 Urine Bilirubin Negative (NEGATIVE) 07/10/18 15:58 Urine Urobilinogen Normal mg/dL (0.2-1.0) 07/10/18 15:58 Ur Leukocyte Esterase Neg [place]/uL (Negative) 07/10/18 15:58 Urine WBC (Auto) 1 /hpf (0-5) 07/10/18 15:58 Urine Microalbumin < 6.0 mg/L (0.0-16.6) 07/11/18 18:03 - Hospital Course Hospital Course: Christine Ruffin is a 63 yo male with a history of HTN who presents to the ED with blurry vision, polydipsia, polyuria, and weakness x2 weeks. The patient states this has happened to him in the past but never to this extent. The patient also reports a recent unintentional 15 lb weight loss. He stateshe drinks well over a gallon of water each day. Patient denies chest pain and SOB. He denies LEA. He denies loss of sensation, numbness, and tingling. He denies any lesions. He denies fevers and chills. Upon admission, patient's blood glucose was 778. He was given IVF NS and 10 units of insulin. His BG following this was 392. He was not acidotic and anion gap was 16. Patient's A1c was 14.3. Patient was placed on lantus 10 units nightly and high dose insulin sliding scale. He was continued on IVF. He was continued on his home lisinopril and started on statin. By day 2, the patient was started on metformin. Upon discharge, the patient denies blurry vision and weakness. His polydipsia and polyuria improved greatly. The patient was discharged on oral diabetes meds (metformin and glipizide). He was provided with diabetes education and a log to record his sugars. He will establish care with the clinic at [facility] for further management as an outpatient. Discharge Exam - Head Exam Head Exam: ATRAUMATIC, NORMAL INSPECTION, NORMOCEPHALIC - Eye Exam Eye Exam: EOMI, Normal appearance, PERRL - ENT Exam ENT Exam: Mucous Membranes Moist, Normal Exam - Neck Exam Neck exam: Normal Inspection - Respiratory Exam Respiratory Exam: Clear to PA & Lateral, NORMAL BREATHING PATTERN, UNREMARKABLE - Cardiovascular Exam Cardiovascular Exam: REGULAR RHYTHM - GI/Abdominal Exam GI & Abdominal Exam: Normal Bowel Sounds, Unremarkable - Rectal Exam Rectal Exam: Deferred - Extremities Exam Extremities exam: normal capillary refill, normal inspection, pedal pulses present - Back Exam Back exam: NORMAL INSPECTION - Neurological Exam Neurological exam: Alert, CN II-XII Intact, Normal Gait, Oriented x3 - Psychiatric Exam Psychiatric exam: Normal Affect, Normal Mood - Skin Skin Exam: Dry, Intact, Normal Color, Warm Discharge Plan - Discharge Medications Prescriptions: Aspirin [Aspirin Chewable] 81 mg PO DAILY #30 chew GlipiZIDE [Glucotrol] 0 mg PO DAILY #30 tab Lisinopril [Zestril] 10 mg PO DAILY #30 tab MetFORMIN [glucoPHAGE] 1,000 mg PO BID #60 tab Simvastatin 20 mg PO HS #30 tablet - Follow Up Plan Condition: GOOD Disposition: HOME/ ROUTINE Patient education suggested?: Yes Instructions: Diabetes Diet , Diabetes Type 2 (DC), Aspirin, Glipizide, Lisinopril, Metformin, Simvastatin Additional Instructions: Patient is cleared for discharge as per Dr. Trejo. He will establish care with the [facility] at [facility] ([phone]). He has an appointment on July 17 at 9 AM. Patient is instructed to check his blood sugar throughout the day with a glucometer and record them on a paper log. Patient will bring this log with him to his clinic appointment next week, which will help in management of his diabetes. Patient is counseled on lifestyle changes. He is to avoid carbs as much as possible, including pasta, white rice, white bread, potatoes, jelly/jam, baked goods, ice cream, and sugary drinks (soda, juice). He should also exercise for at least 30 minutes daily. He will be discharged with the following prescriptions: Aspirin 81 mg- take one by mouth once a day Lisinopril 10 mg- take one by mouth once a day Glipizide 2.5 mg- take one by mouth once a day Simvastatin 20 mg- take one by mouth at night Metformin 1000 mg- take one by mouth twice a day If symptoms recur or worsen, patient is to return to the ED. Patient acknowledges understanding and agrees. Referrals: [facility] [Outside] Clinical Quality Measures - CQM - Stroke Antithrombotic Prescribed: Yes Anticoagulation Prescribed for Atrial Flutter, Atrial Fibrillation and History of:: Not Applicable Statin prescribed: Yes <Christian Trejo - Last Filed: 07/13/18 13:33> Provider - Provider Date of Admission: 07/10/18 17:04 Attending physician: Christian Trejo DO Hospital Course - Lab Results Lab Results: Micro Results 07/10/18 06:00 Blood Blood Culture - Preliminary NO GROWTH AFTER 48 HOURS 07/10/18 06:00 Blood Blood Culture - Preliminary NO GROWTH AFTER 48 HOURS Most Recent Lab Values WBC 4.5 K/uL (4.8-10.8) L 07/12/18 07:12 RBC 4.18 Mil/uL (4.40-5.90) L 07/12/18 07:12 Hgb 12.8 g/dL (12.0-18.0) 07/12/18 07:12 Hct 36.7 % (35.0-51.0) 07/12/18 07:12 MCV 87.7 fL (80.0-94.0) 07/12/18 07:12 MCH 30.7 pg (27.0-31.0) 07/12/18 07:12 MCHC 35.0 g/dL (33.0-37.0) 07/12/18 07:12 RDW 14.1 % (11.5-14.5) 07/12/18 07:12 Plt Count 114 K/uL (130-400) L 07/12/18 07:12 MPV 11.2 fL (7.2-11.7) 07/12/18 07:12 Neut % (Auto) 51.2 % (50.0-75.0) 07/12/18 07:12 Lymph % (Auto) 39.8 % (20.0-40.0) 07/12/18 07:12 [place] % (Auto) 6.4 % (0.0-10.0) 07/12/18 07:12 Eos % (Auto) 1.9 % (0.0-4.0) 07/12/18 07:12 Baso % (Auto) 0.7 % (0.0-2.0) 07/12/18 07:12 Neut # (Auto) 2.3 K/uL (1.8-7.0) 07/12/18 07:12 Lymph # (Auto) 1.8 K/uL (1.0-4.3) 07/12/18 07:12 [place] # (Auto) 0.3 K/uL (0.0-0.8) 07/12/18 07:12 Eos # (Auto) 0.1 K/uL (0.0-0.7) 07/12/18 07:12 Baso # (Auto) 0.0 K/uL (0.0-0.2) 07/12/18 07:12 Differential Comment 07/10/18 15:58 pO2 54 mm/Hg (30-55) 07/10/18 16:03 VBG pH 7.36 (7.32-7.43) 07/10/18 16:03 VBG pCO2 34 mmHg (40-60) L 07/10/18 16:03 VBG HCO3 20.4 mmol/L 07/10/18 16:03 VBG Total CO2 20.2 mmol/L (22-28) L 07/10/18 16:03 VBG O2 Sat (Calc) 93.1 % (40-65) H 07/10/18 16:03 VBG Base Excess -5.4 mmol/L (0.0-2.0) L 07/10/18 16:03 VBG Potassium 3.1 mmol/L (3.6-5.2) L 07/10/18 16:03 Sodium 135.0 mmol/l (132-148) 07/10/18 16:03 Chloride 101.0 mmol/L (98-107) 07/10/18 16:03 Glucose 673 mg/dl (75-110) H* 07/10/18 16:03 Lactate 1.1 mmol/L (0.7-2.1) 07/10/18 16:03 Crit Value Called To stefania Hartmann rn 07/10/18 16:03 Crit Value Called By Sam 07/10/18 16:03 Crit Value Read Back Y 07/10/18 16:03 Blood Gas Notified Time 1608 07/10/18 16:03 Sodium 141 mmol/L (132-148) 07/12/18 07:12 Potassium 3.3 mmol/L (3.6-5.2) L 07/12/18 07:12 Chloride 108 mmol/L (98-107) H 07/12/18 07:12 Carbon Dioxide 22 mmol/L (22-30) 07/12/18 07:12 Anion Gap 14 (10-20) 07/12/18 07:12 BUN 5 mg/dL (9-20) L 07/12/18 07:12 Creatinine 0.7 mg/dL (0.8-1.5) L 07/12/18 07:12 Est GFR ( Amer) > 60 07/12/18 07:12 Est GFR (Non-Af Amer) > 60 07/12/18 07:12 POC Glucose (mg/dL) 164 mg/dL (65-110) H 07/12/18 11:35 Random Glucose 199 mg/dL (75-110) H 07/12/18 07:12 Hemoglobin A1c 14.3 % (4.2-6.5) H 07/11/18 06:55 Calcium 8.1 mg/dl (8.6-10.4) L 07/12/18 07:12 Phosphorus 2.5 mg/dL (2.5-4.5) 07/11/18 06:55 Magnesium 1.8 mg/dL (1.6-2.3) 07/11/18 06:55 Total Bilirubin 0.8 mg/dL (0.2-1.3) 07/12/18 07:12 AST 21 U/L (17-59) 07/12/18 07:12 ALT 18 U/L (21-72) L D 07/12/18 07:12 Alkaline Phosphatase 65 U/L (38-126) 07/12/18 07:12 Total Protein 5.9 g/dL (6.3-8.3) L 07/12/18 07:12 Albumin 3.2 g/dL (3.5-5.0) L 07/12/18 07:12 Globulin 2.7 gm/dL (2.2-3.9) 07/12/18 07:12 Albumin/Globulin Ratio 1.2 (1.0-2.1) 07/12/18 07:12 Triglycerides 122 mg/dL (0-149) 07/11/18 06:55 Cholesterol 143 mg/dL (0-199) 07/11/18 06:55 LDL Cholesterol Direct 57 mg/dL (0-129) 07/11/18 06:55 HDL Cholesterol 41 mg/dL (30-70) 07/11/18 06:55 TSH 3rd Generation 0.86 mIU/L (0.46-4.68) 07/11/18 06:55 Venous Blood Potassium 3.1 mmol/L (3.6-5.2) L 07/10/18 16:03 Urine Color Colorless (YELLOW) 07/10/18 15:58 Urine Clarity Clear (Clear) 07/10/18 15:58 Urine pH 5.0 (5.0-8.0) 07/10/18 15:58 Ur Specific [place] 1.022 (1.003-1.030) 07/10/18 15:58 Urine Protein Negative mg/dL (NEGATIVE) 07/10/18 15:58 Urine Glucose (UA) 3+ mg/dL (Normal) H 07/10/18 15:58 Urine Ketones 1+ mg/dL (NEGATIVE) H 07/10/18 15:58 Urine Blood Negative (NEGATIVE) 07/10/18 15:58 Urine Nitrate Negative (NEGATIVE) 07/10/18 15:58 Urine Bilirubin Negative (NEGATIVE) 07/10/18 15:58 Urine Urobilinogen Normal mg/dL (0.2-1.0) 07/10/18 15:58 Ur Leukocyte Esterase Neg Kristian/uL (Negative) 07/10/18 15:58 Urine WBC (Auto) 1 /hpf (0-5) 07/10/18 15:58 Urine Microalbumin < 6.0 mg/L (0.0-16.6) 07/11/18 18:03 Attending/Attestation - Attestation I have personally seen and examined this patient.: Yes I have fully participated in the care of the patient.: Yes I have reviewed all pertinent clinical information, including history, physical exam and plan: Yes Notes (Text): 07/13/18 13:30 Medical attending: Patient was seen and examined by me. Agree with the above note by the resident The patient was not in any acute distress when he was discharged. He explained that he was no longer having the senation of polyuria and polydyspia We talked about his blood sugar as well as the importance of life style modifications and also diet and smaller portion sizes. He will need to be on the metformin as well as glipizide (which was only once a day, this can be changed to BID later if neccessary) also to be on an PEMA-I as well as a statin class medication and a baby ASA The patient says he understands the need for follow up and will be the [facility]. thank you Christian Trejo
[2018-07-12 07:22] LABS: BASO % 0.7 % (0.0-2.0); EOS # 0.1 K/uL (0.0-0.7); EOS % 1.9 % (0.0-4.0); HEMOGLOBIN 12.8 g/dL (12.0-18.0); LYMPH # 1.8 K/uL (1.0-4.3); LYMPH % 39.8 % (20.0-40.0); MEAN CELL VOLUME 87.7 fL (80.0-94.0); MEAN CORPUSCULAR HEMOGLOBIN 30.7 pg (27.0-31.0); MEAN PLATELET VOLUME 11.2 fL (7.2-11.7); MONO # 0.3 K/uL (0.0-0.8); MONO % 6.4 % (0.0-10.0); NEUT # 2.3 K/uL (1.8-7.0); NEUT % 51.2 % (50.0-75.0); NRBC % 0.1 % (0.0-2.0); RBC 4.18 Mil/uL (4.40-5.90); RED CELL DISTRIBUTION WIDTH 14.1 % (11.5-14.5); WHITE BLOOD COUNT 4.5 K/uL (4.8-10.8)
[2018-07-12 07:48] LABS: ALB/GLOB RATIO 1.2 (1.0-2.1); ALBUMIN 3.2 g/dL (3.5-5.0); ALT/SGPT 18 U/L (21-72); AST/SGOT 21 U/L (17-59); BLOOD UREA NITROGEN 5 mg/dL (9-20); CALCIUM 8.1 mg/dl (8.6-10.4); GFR NON-AFRICAN AMERICAN > 60
[2018-07-12 08:26] VITALS: BP 147/85; PULSE 64; RESP 98; TEMP 98.4; O2SAT 98
[2018-07-12] MEDS: (Novolog) Insulin Aspart, Recombinant 100 u/ml 10 ml vial SC SCH ×2 (08:30→12:25)
[2018-07-12] MEDS ORDERED: Potassium Chloride 20 mEq ER Tab PO ONE (09:07)
[2018-07-12] MEDS ORDERED: Sodium Chloride 0.9% 1,000 ML IV SCH (09:07)
[2018-07-12] MEDS: Enoxaparin 40 mg Syringe SC SCH ×2 (10:29→10:34)
[2018-07-12] MEDS ORDERED: Pneumococcal 23-Valent Vaccine IM ONE (13:30)
[2018-07-13] MEDS ORDERED: Pneumococcal 23-Valent Vaccine IM ONE (10:00)
== END 2018-07-12 14:34 | disposition home or self-care (01) | DRG 294 ==
LOC: C.ER 14:35 → C.9E 17:04 → C.3T 20:41
PROVIDERS: ADMIT Hospitalist; ATTEND Hospitalist
DX: E11.9 Type 2 diabetes mellitus without complications (principal); I10 Essential (primary) hypertension; R63.1 Polydipsia; F17.200 Nicotine dependence, unspecified, uncomplicated; H53.8 Other visual disturbances; R53.1 Weakness; Z79.4 Long term (current) use of insulin